=== PATIENT | male | born 1965 | race Caucasian/White ===

== ENCOUNTER → 2016-11-28 | Outpatient (CLI) | payer OTHER | END | disposition disaster alternative care site (69) | LOC: GAMB 19:58 | DX: S09.93XA Unspecified injury of face, initial encounter (principal); I10 Essential (primary) hypertension; H92.22 Otorrhagia, left ear; S09.91XA Unspecified injury of ear, initial encounter; R04.0 Epistaxis; X58.XXXA Exposure to other specified factors, initial encounter ==